=== PATIENT | female | born 1965 | race Hispanic/Latino ===

== ENCOUNTER 2018-01-22 15:05 | Outpatient (CLI) | payer OTHER | END 2018-01-22 15:06 | disposition home or self-care (01) | LOC: BICMAMMO 15:05 | PROVIDERS: ATTEND Family Medicine | DX: Z12.31 Encounter for screening mammogram for malignant neoplasm of breast (principal); R92.1 Mammographic calcification found on diagnostic imaging of breast; Z80.3 Family history of malignant neoplasm of breast | CPT/HCPCS: 77063; 77067 ==